=== PATIENT | female | born 1990 | race Caucasian/White ===

== ENCOUNTER 2019-08-23 16:53 | Emergency (ER) | payer MEDICAID ==
[~2019-08-23] VITALS: Ht 160 cm; Wt 64.4 kg
[2019-08-23] MEDS ORDERED: ACETAMINOPHEN 500 MG TABLET ONE (17:08)
--- NOTE | 2019-08-23 17:10 | NUR ---
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
[2019-08-23 17:29] LABS: BASOPHILS % (AUTO) 0 % (0-1); EOSINOPHILS # (AUTO) 0.04 x10^3/uL (0-0.4); EOSINOPHILS % (AUTO) 0 % (1-7); LYMPHOCYTES % (AUTO) 9 % (22-44); MD NO; MEAN CORPUSCULAR HEMOGLOBIN 31.2 pg (27.0-34.8); MEAN CORPUSCULAR VOLUME 94.4 fL (80-100); MEAN PLATELET VOLUME 6.9 fL (7.4-10.4); MONOCYTES # (AUTO) 0.64 x10^3/uL (0.2-0.8); MONOCYTES % (AUTO) 5 % (2-9); NEUTROPHILS # (AUTO) 10.53 x10^3/uL (1.8-6.8); NEUTROPHILS % (AUTO) 86 % (42-75); PLATELET COUNT 185 x10^3/uL (130-400); RED BLOOD COUNT 4.49 x10^6/uL (3.82-5.3); RED CELL DISTRIBUTION WIDTH 12.2 % (9.6-15.2)
[2019-08-23] MEDS ORDERED: ALBUTEROL SULFATE 2.5 MG/3 ML NPPB ONE (17:30)
[2019-08-23] MEDS ORDERED: ACETAMINOPHEN 500 MG TABLET PO ONE (17:30)
[2019-08-23 17:37] LABS: ALBUMIN 3.5 g/dL (3.4-5.0); ANION GAP 5 mmol/L (5-15); CHLORIDE 102 mmol/L (98-107); CREATININE 0.78 mg/dL (0.55-1.02)
--- NOTE | 2019-08-23 18:38 | NUR ---
Pt to room from lobby.
[2019-08-23] MEDS ORDERED: ALBUTEROL SULFATE 2.5 MG/3 ML ONE (18:49)
--- NOTE | 2019-08-23 18:50 | NUR ---
RT AT BS NOW.
--- NOTE | 2019-08-23 19:07 | NUR ---
ERP AT NOW.
[2019-08-23] MEDS ORDERED: IBUPROFEN 200 MG TABLET ONE (19:29)
[2019-08-23] MEDS ORDERED: MORPHINE SULFATE 4 MG/ML, 1ML ONE (19:29)
[2019-08-23] MEDS ORDERED: SODIUM CHLORIDE 0.9% 1,000ML IVBOLUS ONE (19:30)
[2019-08-23] MEDS ORDERED: IBUPROFEN 200 MG TABLET PO ONE (19:30)
--- NOTE | 2019-08-23 19:36 | NUR ---
PT DECLINED MORPHINE. MEDICATED WITH MOTRIN PER ORDERS.
[2019-08-23 19:42] LABS: RAPID INFLUENZA A Negative (Negative); RAPID INFLUENZA B POSITIVE (Negative)
--- NOTE | 2019-08-23 20:00 | NUR ---
PT AMBULATED TO BR WITHOUT DIFFICULTY. INSTRUCTED ON CLEAN CATCH URINE SAMPLE.
--- NOTE | 2019-08-23 20:14 | NUR ---
IVF INFUSING, PT UNDERSTANDS POC.
[2019-08-23 20:41] LABS: CULTURE INDICATED? YES; MICROSCOPIC AUTO
[2019-08-23 21:21] VITALS: BP 102/46
--- NOTE | 2019-08-23 21:50 | NUR ---
D/C INSTRUCTIONS, MEDS & F/U APPT RV'WD WITH PT, SHE VERBALIZES UNDERSTANDING. INSTRUCTED ON INFECTION CONTROL PRECAUTIONS. AMBULATED OUT OF ED WITHOUT DIFFICULTY.
== END 2019-08-23 22:10 | disposition home or self-care (01) ==
LOC: ED 20:58
DX: J10.1 Influenza due to other identified influenza virus with other respiratory manifestations (principal); F17.200 Nicotine dependence, unspecified, uncomplicated
CPT/HCPCS: 36415; 71046; 80048; 81001; 82040; 83605; 85025; 87086; 87400; 93005; 94640; 99284; J7030; J7512; J7613